=== PATIENT | female | born 1930 | race Caucasian/White ===

== ENCOUNTER → 2016-09-21 | Outpatient (CLI) | payer MEDICARE, MEDICAID ==
[~2016-09-21] VITALS: Ht 158.8 cm; Wt 74.1 kg
[~2016-09-21] MED LIST: ACTOS; ALEN70TA7 PO; MULT-543 PO
== END ==
LOC: RC 12:12
PROVIDERS: ATTEND Nurse Practitioner
DX: R06.09 Other forms of dyspnea (principal)
CPT/HCPCS: 94010; 94726